=== PATIENT | female | born 1940 | race Asian ===

== ENCOUNTER 2017-07-15 17:05 | Emergency (ER) | payer MEDICARE, OTHER ==
[2017-07-15 17:59] VITALS: TEMP 97.7; BMI 20.2
--- NOTE | 2017-07-15 18:19 | PDOC ---
History of Present Illness <Rosa Chen - Last Filed: 07/15/17 18:19> - General History Source: Patient Exam Limitations: No Limitations - History of Present Illness Initial Comments: 07/15/17 18:43 The patient is a 76 year old female, with significant past medical history of pacemaker (20 years ago), cancer (many years ago), who presents to the emergency room complaining of weakness starting yesterday afternoon. She states that she visited the clinic this morning because her PCP is out of office until tomorrow, and was found to have a blood pressure of 166/90 and was told to come to the emergency room. The patient is a poor historian. Denies changes in vision, dizziness, lightheadedness. Denies fever, chills, nausea, vomiting. Denies abdominal pain. Denies leg swelling, calf pain. Denies chest pain, SOB. Allergies: none reported PCP: Dr. Gillespie <Jenifer Alexander - Last Filed: 07/15/17 18:44> - General Chief Complaint: Weakness Stated Complaint: WEAKNESS Time Seen by Provider: 07/15/17 17:43 Past History - Psycho/Social/Smoking Cessation Hx Anxiety: No Suicidal Ideation: No Smoking History: Never smoked Have you smoked in the past 12 months: No Information on smoking cessation initiated: No Hx Alcohol Use: No Drug/Substance Use Hx: No Substance Use Type: None <Rosa Chen - Last Filed: 07/15/17 18:19> <Jenifer Alexander - Last Filed: 07/15/17 18:44> - Past Medical History Allergies/Adverse Reactions: Allergies Allergy/AdvReac Type Severity Reaction Status Date / Time No Known Allergies Allergy Unverified 07/15/17 17:47 Home Medications: Ambulatory Orders NK [No Known Home Medication] 07/15/17 Review of Systems - Review of Systems Able to Perform ROS?: Yes Comments:: 07/15/17 18:44 GENERAL/CONSTITUTIONAL: +weakness.No fever or chills. HEAD, EYES, EARS, NOSE AND THROAT: No change in vision. No ear pain or discharge. No sore throat. GASTROINTESTINAL: No nausea, vomiting, diarrhea or constipation. GENITOURINARY: No dysuria, frequency, or change in urination. CARDIOVASCULAR: No chest pain or shortness of breath. RESPIRATORY: No cough, wheezing, or hemoptysis. MUSCULOSKELETAL: No joint or muscle swelling or pain. No neck or back pain. SKIN: No rash NEUROLOGIC: No headache, vertigo, loss of consciousness, or change in strength/ sensation. ENDOCRINE: No increased thirst. No abnormal weight change. HEMATOLOGIC/LYMPHATIC: No anemia, easy bleeding, or history of blood clots. ALLERGIC/IMMUNOLOGIC: No hives or skin allergy. <Jenifer Alexander - Last Filed: 07/15/17 18:44> *Physical Exam - Vital Signs Last Vital Signs Temp Pulse Resp BP Pulse Ox 97.7 F 63 18 133/71 98 07/15/17 17:33 07/15/17 17:33 07/15/17 17:33 07/15/17 17:33 07/15/17 17:33 <Rosa Chen - Last Filed: 07/15/17 18:19> - Vital Signs Last Vital Signs Temp Pulse Resp BP Pulse Ox 97.7 F 63 18 133/71 98 07/15/17 17:33 07/15/17 17:33 07/15/17 17:33 07/15/17 17:33 07/15/17 17:33 <Jenifer Alexander - Last Filed: 07/15/17 18:44> ED Treatment Course - LABORATORY CBC & Chemistry Diagram: 07/15/17 18:15 07/15/17 18:15 <Jenifer Alexander - Last Filed: 07/15/17 18:44> *DC/Admit/Observation/Transfer - Attestations Scribe Attestion: 07/15/17 18:44 Documentation prepared by MIL Thompson, acting as medical collector for Rosa Chen MD. <Jenifer Alexander - Last Filed: 07/15/17 18:44>
[2017-07-15 18:41] LABS: BASOPHIL 0.7 % (0-2.0); EOSINOPHIL 1.9 % (0-4.5); MCH 29.1 pg (25.7-33.7); MEAN CELL VOLUME 88.2 fl (80-96); MEAN PLT VOLUME 7.9 fl (7.5-11.1); NEUTROPHILS 61.2 % (42.8-82.8); PLATELET COUNT 229 K/MM3 (134-434); RDW 13.1 % (11.6-15.6); WHITE BLOOD COUNT 3.7 K/mm3 (4.0-10.0)
[2017-07-15 19:09] LABS: ALBUMIN 4.2 g/dl (3.4-5.0); ANION GAP 8 (8-16); BILIRUBIN,TOTAL 0.5 mg/dL (0.2-1.0); CALCIUM 9.5 mg/dL (8.5-10.1); CO2 32 mmol/L (21-32); CREATININE 0.6 mg/dL (0.55-1.02); GLUCOSE,RANDOM 84 mg/dL (74-106); SGPT/ALT 27 U/L (12-78); TOT PROT 7.6 g/dl (6.4-8.2)
[2017-07-15 19:11] LABS: ALK PHOS 79 U/L (45-117); TROPONIN I < 0.02 ng/ml (0.00-0.05)
[2017-07-15 19:17] VITALS: BP 130/78; PULSE 70
[2017-07-15 19:19] LABS: CPK 332 IU/L (26-192); SGOT/AST 44 U/L (15-37)
[2017-07-15 19:28] LABS: URINE APPEARANCE CLEAR; URINE BILIRUBIN NEGATIVE (NEGATIVE); URINE BLOOD NEGATIVE (NEGATIVE); URINE COLOR STRAW; URINE GLUCOSE (UA) NEGATIVE (NEGATIVE); URINE KETONE NEGATIVE (NEGATIVE); URINE LEUK ESTERASE NEGATIVE (NEGATIVE); URINE NITRITE NEGATIVE (NEGATIVE); URINE PROTEIN NEGATIVE (NEGATIVE); URINE UROBILINOGEN NEGATIVE mg/dL (0.2-1.0)
--- NOTE | 2017-07-15 20:25 | PDOC ---
*Physical Exam - Vital Signs Last Vital Signs Temp Pulse Resp BP Pulse Ox 97.7 F 70 16 130/78 99 07/15/17 17:33 07/15/17 19:18 07/15/17 19:17 07/15/17 19:17 07/15/17 19:18 ED Treatment Course - LABORATORY CBC & Chemistry Diagram: 07/15/17 18:15 07/15/17 18:15 - ADDITIONAL ORDERS Additional order review: Laboratory Results 07/15/17 07/15/17 19:11 18:15 Sodium 137 Potassium 4.3 Chloride 97 L Carbon Dioxide 32 Anion Gap 8 BUN 13 Creatinine 0.6 Creat Clearance w eGFR > 60 Random Glucose 84 Calcium 9.5 Total Bilirubin 0.5 AST 44 H ALT 27 Alkaline Phosphatase 79 Creatine Kinase 332 H Creatine Kinase Index 0.9 CK-MB (CK-2) 3.146 Troponin I < 0.02 Total Protein 7.6 Albumin 4.2 Urine Color Straw Urine Appearance Clear Urine pH 8.0 Urine Protein Negative Urine Glucose (UA) Negative Urine Ketones Negative Urine Blood Negative Urine Nitrite Negative Urine Bilirubin Negative Urine Urobilinogen Negative Ur Leukocyte Esterase Negative 07/15/17 18:15 RBC 4.28 MCV 88.2 MCHC 33.0 RDW 13.1 MPV 7.9 Neutrophils % 61.2 Lymphocytes % 26.9 Monocytes % 9.3 Eosinophils % 1.9 Basophils % 0.7 Medical Decision Making - Medical Decision Making 07/15/17 20:24 all studies within normal values. Pt to be discharged. *DC/Admit/Observation/Transfer Diagnosis at time of Disposition: Weakness - Discharge Dispostion Disposition: HOME Condition at time of disposition: Stable Admit: No - Patient Instructions Printed Discharge Instructions: DI for Muscle Weakness
--- NOTE | 2017-07-16 14:57 | EKG ---
Test Reason : Blood Pressure : / mmHG Vent. Rate : 066 BPM Atrial Rate : 066 BPM P-R Int : 156 ms QRS Dur : 080 ms QT Int : 410 ms P-R-T Axes : 015 058 061 degrees QTc Int : 429 ms SINUS RHYTHM WITH PREMATURE ATRIAL COMPLEXES OTHERWISE NORMAL ECG WHEN COMPARED WITH ECG OF 20-MAR-2006 07:24, PREMATURE ATRIAL COMPLEXES ARE NOW PRESENT NONSPECIFIC T WAVE ABNORMALITY NOW EVIDENT IN ANTERIOR LEADS Confirmed by LISSETH GLASS, RENEA ([id number]) on 07/16/2017 2:57:11 PM Referred By: Confirmed By:RENEA MONTANEZ MD
== END 2017-07-15 20:34 | disposition home or self-care (01) ==
LOC: JER 17:05
DX: M62.81 Muscle weakness (generalized) (principal); Z95.0 Presence of cardiac pacemaker; Z85.9 Personal history of malignant neoplasm, unspecified
CPT/HCPCS: 36415; 80053; 81003; 82553; 84484; 85025; 87086; 93005; 93010; 99284-25

== ENCOUNTER 2017-09-25 12:23 | Emergency (ER) | payer MEDICARE, OTHER ==
[2017-09-25 12:36] VITALS: BP 137/67; PULSE 67; TEMP 95.6; BMI 20.2
--- NOTE | 2017-09-25 13:06 | PDOC ---
History of Present Illness - General Chief Complaint: Chest Pain Stated Complaint: LEFT SIDED CHEST PAIN Time Seen by Provider: 09/25/17 12:50 History Source: Patient - History of Present Illness Initial Comments: 09/25/17 13:15 Patient is a 76 y.o. female with a PMH of lymphoma, MDD, and cardiac pacemaker placement who presents today w/neighbor for a concern for chest pain and palpitations. Patient notes the chest pain is L sided parasternal localized to her pacemaker. Pain is relieved by rubbing and exacerbated by exertion. Patient endorses associated shortness of breath upon exertion/relieved by rest and denies any cough, fevers, viral URI symptoms. Of note, patient's sister last week and she notes some exacerbated baseline anxiety/ depression. NKDA Surgical: Pacemaker Placement Social: denies cigarettes, denies alcohol, denies recreational drugs PMD: Dr. Gillespie Past History - Past Medical History Allergies/Adverse Reactions: Allergies Allergy/AdvReac Type Severity Reaction Status Date / Time No Known Allergies Allergy Verified 09/25/17 12:33 Home Medications: Ambulatory Orders Fluoxetine HCl 20 mg PO DAILY 09/25/17 Zinc Sulfate 220 mg PO DAILY 09/25/17 - Suicide/Smoking/Psychosocial Hx Smoking History: Never smoked Have you smoked in the past 12 months: No Hx Alcohol Use: No Drug/Substance Use Hx: No Substance Use Type: None Review of Systems - Review of Systems Constitutional: No: Chills, Fever Respiratory: No: Cough, Shortness of Breath Cardiac (ROS): Yes: Chest Pain (reproducible over L parasteral pacemaker), Palpitations. No: Lightheadedness, Chest Tightness : No: Burning, Dysuria Psychiatric: Yes: Anxiety, Depression All Other Systems: Reviewed and Negative *Physical Exam - Vital Signs Last Vital Signs Temp Pulse Resp BP Pulse Ox 95.6 F L 67 19 137/67 97 09/25/17 12:33 09/25/17 12:33 09/25/17 12:33 09/25/17 12:33 09/25/17 12:33 - Physical Exam General Appearance: Yes: Nourished, Thin HEENT: positive: CYNDEE Respiratory/Chest: positive: Normal Breath Sounds. negative: Accessory Muscle Use, Labored Respiration, Crackles, Rales, Stridor, Wheezing Cardiovascular: positive: S1, S2. negative: Murmur Gastrointestinal/Abdominal: positive: Normal Bowel Sounds, Tender, Soft Extremity: positive: Normal Capillary Refill, Normal Inspection Integumentary: positive: Normal Color, Dry, Warm, Other (L parasternal pacemaker , no appreciable warmth, no erythema, no TTP) Neurologic: positive: automotive refinish technician II-XII NML intact, Fully Oriented, Alert ED Treatment Course - LABORATORY CBC & Chemistry Diagram: 09/25/17 13:20 09/25/17 13:20 Medical Decision Making - Medical Decision Making 09/25/17 19:50 Patient is 76 y.o female who presents with palpations. Initial DDx is for ACS ( less likely) vs. Pacemaker dysfunction. EKG shows NSR @ HR 65 with no deviations, normal intervals and no T wave changes and good R wave progression. Troponin (-) x2. CBC shows no anemia. Dr. Guerrier (cardiology) evaluated patient @ bedside, determined patient could be f/u as outpatient for pacemaker interrogation. Patient discharged home with return precautions and instruction to f/u with cardiology in the next 3-5 days. *DC/Admit/Observation/Transfer Diagnosis at time of Disposition: Chest pain, atypical - Discharge Dispostion Disposition: HOME Condition at time of disposition: Good Admit: No - Referrals Referrals: Philippe Guerrier MD [Staff Physician] - - Patient Instructions Printed Discharge Instructions: DI for Atypical Chest Pain Additional Instructions: Please return to the Emergency Department for any worsening or concerning symptoms. Please make an appointment to see Dr. Guerrier for evaluation of your pacemaker within the next 3-5 days. - Post Discharge Activity
[2017-09-25 13:25] LABS: BASOPHIL 1.3 % (0-2.0); EOSINOPHIL 2.9 % (0-4.5); MCH 28.5 pg (25.7-33.7); MCHC 32.6 g/dl (32.0-36.0); MEAN CELL VOLUME 87.5 fl (80-96); MEAN PLT VOLUME 7.2 fl (7.5-11.1); NEUTROPHILS 68.1 % (42.8-82.8); PLATELET COUNT 251 K/MM3 (134-434); RDW 13.1 % (11.6-15.6); WHITE BLOOD COUNT 2.8 K/mm3 (4.0-10.0)
[2017-09-25 13:58] LABS: ALBUMIN 4.1 g/dl (3.4-5.0); ALK PHOS 52 U/L (45-117); ANION GAP 11 (8-16); BILIRUBIN,TOTAL 0.6 mg/dL (0.2-1.0); CALCIUM 9.1 mg/dL (8.5-10.1); CO2 28 mmol/L (21-32); CREATININE 0.9 mg/dL (0.55-1.02); GLUCOSE,RANDOM 132 mg/dL (74-106); SGOT/AST 26 U/L (15-37); SGPT/ALT 22 U/L (12-78); TOT PROT 7.4 g/dl (6.4-8.2)
[2017-09-25 14:00] LABS: CPK 204 IU/L (26-192); TROPONIN I < 0.02 ng/ml (0.00-0.05)
--- NOTE | 2017-09-25 14:07 | PDOC ---
Attending Attestation - Resident Resident Name: Morenita Galindo - ED Attending Attestation I have performed the following: I have examined & evaluated the patient, The case was reviewed & discussed with the resident, I agree w/resident's findings & plan, Exceptions are as noted - HPI HPI: 09/25/17 13:44 76 year old F c/ hx pacemaker, lymphoma (in remission) p/w chest pain since yesterday. The patient started to notice yesterday. Reports chest discomfort over the pacemaker site improved with rubbing on the site. Denies midsternal chest pain or exertional component. Denies SOB at rest. States that this make her feel occasional SOB. Denies recent illnesses, fevers, chills. Dr. Guerrier is her meters superintendent. - Physicial Exam PE: 09/25/17 17:09 GENERAL: NAD, AAOx3, comfortable appearing CV: RRR, +s1, s2. Left pacemaker clean, dry intact, and with no erythema or drainage. R sided port. No erythema, drainage. PULM: CTA b/l ABD: soft, nd, nt - Medical Decision Making 09/25/17 17:11 Vital Signs Temp Pulse Resp BP Pulse Ox 95.6 F L 67 19 137/67 97 09/25/17 12:33 09/25/17 13:39 09/25/17 13:39 09/25/17 13:39 09/25/17 13:39 The chest pain is atypical for ACS. However, with cardiac disease, we need at the very minimum two troponins. We had spoken with Dr. Guerrier (her meters superintendent) who came and saw and evaluated the patient. Agrees with plan for two troponins, and if workup negative, the patient can follow up in his office on an urgent basis. Heart Score/ECG Review - History History: Slightly suspicious - Electrocardiogram EKG: Non specific repolarization disturbance - Age Age: >/= 65 - Risk Factors Risk Factors Heart Score: Yes Hx Hypertension Based on the list above the patient has:: 1-2 risk factors - Troponin Troponin: </= normal limit - Score Heart Score - Total: 4 #1 ECG reviewed & interpreted by me at: 12:30 09/25/17 17:11 NSR 65, no std/tawanna, normal axis, normal intervals, LVH, QTC 424 msec
--- NOTE | 2017-09-25 21:00 | PDOC ---
*Physical Exam - Vital Signs Last Vital Signs Temp Pulse Resp BP Pulse Ox 95.6 F L 67 19 137/67 97 09/25/17 12:33 09/25/17 13:39 09/25/17 13:39 09/25/17 13:39 09/25/17 13:39 - Physical Exam Comments: 09/25/17 20:57 gen: aaox3, nad, heart: +s1s2 reg, ttp over L pacer site Lungs: cta b/l abd: soft, nt/nd +bs Ext: no c/c/e ED Treatment Course - LABORATORY CBC & Chemistry Diagram: 09/25/17 13:20 09/25/17 13:20 - ADDITIONAL ORDERS Additional order review: Laboratory Results 09/25/17 09/25/17 19:10 13:20 Sodium 136 Potassium 3.5 Chloride 97 L Carbon Dioxide 28 Anion Gap 11 BUN 11 Creatinine 0.9 D Creat Clearance w eGFR > 60 Random Glucose 132 H D Calcium 9.1 Total Bilirubin 0.6 AST 26 D ALT 22 Alkaline Phosphatase 52 D Creatine Kinase 204 H Creatine Kinase Index 0.8 CK-MB (CK-2) 1.712 Troponin I 0.02 < 0.02 Total Protein 7.4 Albumin 4.1 09/25/17 13:20 RBC 4.72 MCV 87.5 MCHC 32.6 RDW 13.1 MPV 7.2 L Neutrophils % 68.1 Lymphocytes % 16.8 D Monocytes % 10.9 H Eosinophils % 2.9 Basophils % 1.3 Medical Decision Making - Medical Decision Making 09/25/17 20:58 76yo female signed out pending repeat trop will follow up with Dr. Guerrier as outpt repeat trop negative. no cp at this time unless pacer is palpated discussed labs and plan with the patient and her family will have pacer interogated as oupt stable for d/c to home *DC/Admit/Observation/Transfer Diagnosis at time of Disposition: Chest pain, atypical - Discharge Dispostion Disposition: HOME Condition at time of disposition: Good - Referrals Referrals: Philippe Guerrier MD [Staff Physician] - - Patient Instructions Printed Discharge Instructions: DI for Atypical Chest Pain Additional Instructions: Please return to the Emergency Department for any worsening or concerning symptoms. Please make an appointment to see Dr. Guerrier for evaluation of your pacemaker within the next 3-5 days. - Post Discharge Activity
--- NOTE | 2017-09-26 10:06 | EKG ---
Test Reason : Blood Pressure : / mmHG Vent. Rate : 065 BPM Atrial Rate : 065 BPM P-R Int : 166 ms QRS Dur : 080 ms QT Int : 408 ms P-R-T Axes : 071 066 069 degrees QTc Int : 424 ms NORMAL SINUS RHYTHM VOLTAGE CRITERIA FOR LEFT VENTRICULAR HYPERTROPHY ABNORMAL ECG WHEN COMPARED WITH ECG OF 15-JUL-2017 18:39, PREMATURE ATRIAL COMPLEXES ARE NO LONGER PRESENT Confirmed by MAGAN MARTINES MD ([id number]) on 09/26/2017 10:06:06 AM Referred By: Confirmed By:MAGAN MARTINES MD
== END 2017-09-25 21:30 | disposition home or self-care (01) ==
LOC: JER 12:23
DX: R07.89 Other chest pain (principal); Z95.0 Presence of cardiac pacemaker
CPT/HCPCS: 36415; 71020-TC; 80053; 82550; 82553; 84484; 85025; 93005; 93010; 99283-25

== ENCOUNTER 2021-12-30 22:40 | Inpatient (IN) | payer OTHER ==
[2021-12-30] MEDS ORDERED: PANTOPRAZOLE SODIUM 40 MG VIAL IVPUSH ONE (22:58)
[2021-12-30] MEDS ORDERED: ONDANSETRON 4 MG/2 ML VIAL IVPUSH ONE (23:07)
[2021-12-30] MEDS ORDERED: PANTOPRAZOLE SODIUM 40 MG VIAL ONE (23:22)
[2021-12-30] MEDS ORDERED: PANTOPRAZOLE SODIUM 40 MG/100 ML BAG IVPB ONE (23:22)
[2021-12-30] MEDS ORDERED: ONDANSETRON 4 MG/2 ML VIAL ONE (23:22)
[2021-12-30 23:23] LABS: BASO % 0.1 % (0-2.0); HEMATOCRIT 23.7 % (32.4-45.2); HEMOGLOBIN 7.6 GM/dL (10.7-15.3); LYMPH % 0.8 % (8-40); MCH 28.4 pg (25.7-33.7); MEAN CELL VOLUME 88.8 fl (80-96); MEAN PLT VOLUME 6.8 fl (7.5-11.1); MONO % 3.4 % (3.8-10.2); NEUT % 95.7 % (42.8-82.8); PLATELET COUNT 512 10^3/uL (134-434); RBC 2.67 M/mm3 (3.60-5.2); RDW 18.7 % (11.6-15.6); WHITE BLOOD COUNT 10.7 K/mm3 (4.0-10.0)
[2021-12-30 23:32] LABS: INR 1.15 (0.83-1.09); PROTHROMBIN TIME (PATIENT) 13.3 SEC (9.7-13.0)
[2021-12-30 23:34] LABS: ACTIVATED PTT 23.4 SECONDS (25.2-36.5)
[2021-12-30] MEDS ORDERED: SODIUM CHLORIDE 0.9% 500 ML INFUS.BAG IV ONE (23:37)
[2021-12-30 23:45] LABS: ANISOCYTOSIS 0; HELMET CELLS 0; HOWELL-JOLLY BODIES 0; MACROCYTOSIS 0; OVALOCYTE 0; ROULEAU 0; SICKELED CELLS 0; TARGET CELLS 0; TEAR DROP CELLS 0; TOXIC GRANULATION 0
[2021-12-30 23:47] LABS: ALBUMIN 2.9 g/dl (3.4-5.0); BLOOD UREA NITROGEN 99.2 mg/dL (7-18)
[2021-12-30 23:50] LABS: CREATININE 2.7 mg/dL (0.55-1.3)
[2021-12-31 00:01] LABS: LACTIC ACID 3.1 mmol/L (0.4-2.0)
[2021-12-31] MEDS ORDERED: ACETAMINOPHEN 1000 MG/100 ML BAG IVPB ONE (00:16)
[2021-12-31] MEDS ORDERED: ACETAMINOPHEN INJECTION 100 ML IVPB ONE (00:41)
[2021-12-31 01:25] LABS: VENOUS BASE EXCESS -12.6 mmol/L (-2-2); VENOUS O2 SATURATION 70.6 % (70-80); VENOUS PCO2 27.4 mmHg (38-52); VENOUS PH 7.287 (7.310-7.410)
[2021-12-31] MEDS ORDERED: SODIUM CHLORIDE 1,000 ML IV STA (01:47)
[2021-12-31] MEDS ORDERED: ONDANSETRON 4 MG/2 ML VIAL IVPUSH PRN (02:03)
[2021-12-31] MEDS ORDERED: PANTOPRAZOLE SODIUM 80 MG in SODIUM CHLORIDE 100 ML IVPB SCH (02:15)
[2021-12-31 02:24] LABS: EPI CELLS 7 /uL (0-25.1); HYALINE CASTS 7 /uL (0-3.1); URINE APPEARANCE CLEAR; URINE BACTERIA 3 /uL (0-1359); URINE BILIRUBIN NEGATIVE (NEGATIVE); URINE COLOR YELLOW; URINE GLUCOSE (UA) NEGATIVE (NEGATIVE); URINE KETONE 2+ (NEGATIVE); URINE LEUK ESTERASE NEGATIVE (NEGATIVE); URINE NITRITE NEGATIVE (NEGATIVE); URINE PROTEIN 1+ (NEGATIVE); URINE UROBILINOGEN 0.2 mg/dL (0.2-1.0); URINE WBC 5 /uL (0-25.8)
[2021-12-31] MEDS: PANTOPRAZOLE SODIUM 160 MG in SODIUM CHLORIDE 290 ML IVPB SCH ×2 (02:34→21:44)
[2021-12-31] MEDS ORDERED: SODIUM CHLORIDE 0.45% 1,000 ML IV SCH (03:00)
[2021-12-31 07:46] LABS: HEMATOCRIT 29.4 % (32.4-45.2); MCH 29.9 pg (25.7-33.7); PLATELET COUNT 337 10^3/uL (134-434); RBC 3.34 M/mm3 (3.60-5.2); RDW 16.4 % (11.6-15.6); WHITE BLOOD COUNT 9.3 K/mm3 (4.0-10.0)
[2021-12-31 08:02] LABS: CHLORIDE 116 mmol/L (98-107); SODIUM 151 mmol/L (136-145)
[2021-12-31 08:05] LABS: CALCIUM 7.8 mg/dL (8.5-10.1)
[2021-12-31 08:06] LABS: ALBUMIN 2.8 g/dl (3.4-5.0); ANION GAP 18 MMOL/L (8-16); BLOOD UREA NITROGEN 92.8 mg/dL (7-18); CO2 17 mmol/L (21-32); GLUCOSE,RANDOM 101 mg/dL (74-106); MAGNESIUM 2.7 mg/dL (1.8-2.4)
[2021-12-31 08:09] LABS: CREATININE 2.4 mg/dL (0.55-1.3); PHOSPHOROUS 3.8 mg/dL (2.5-4.9); SGOT/AST 264 U/L (15-37); SGPT/ALT 57 U/L (13-61)
[2021-12-31 08:11] LABS: BILIRUBIN,TOTAL 1.5 mg/dL (0.2-1); TOT PROT 5.9 g/dl (6.4-8.2)
[2021-12-31 08:12] LABS: ALK PHOS 73 U/L (45-117)
[2021-12-31 08:40] LABS: URINE RBC 38 /uL (0-23.9)
[2021-12-31 08:52] LABS: ANISOCYTOSIS 0; HELMET CELLS 0; HOWELL-JOLLY BODIES 0; MACROCYTOSIS 0; OVALOCYTE 0; ROULEAU 0; SICKELED CELLS 0; TARGET CELLS 0; TEAR DROP CELLS 0; TOXIC GRANULATION 0
[2021-12-31] MEDS: MUPIROCIN 2% TOPICAL OINTMENT FOR DECOLONIZATION NS SCH ×2 (10:00→21:42)
[2021-12-31] MEDS ORDERED: PNEUMOC 13-VAL CONJ-DIP CRM/PF 0.5 ML DISP.SYRIN IM ONE (13:59)
[2021-12-31] MEDS: DEXTROSE 5%-0.45% SALINE 1,000 ML IV SCH (18:39)
[2021-12-31 21:23] LABS: BASO % 0.1 % (0-2.0); HEMATOCRIT 29.3 % (32.4-45.2); HEMOGLOBIN 9.9 GM/dL (10.7-15.3); LYMPH % 1.1 % (8-40); MCH 29.6 pg (25.7-33.7); MCHC 33.6 g/dl (32.0-36.0); MEAN CELL VOLUME 88.1 fl (80-96); MEAN PLT VOLUME 7.1 fl (7.5-11.1); MONO % 4.3 % (3.8-10.2); NEUT % 94.5 % (42.8-82.8); PLATELET COUNT 270 10^3/uL (134-434); RBC 3.33 M/mm3 (3.60-5.2); RDW 16.3 % (11.6-15.6)
[2021-12-31] MEDS ORDERED: ACETAMINOPHEN 1000 MG/100 ML BAG IVPB PRN ×2 (21:25→22:18)
[2021-12-31] MEDS ORDERED: METOPROLOL TARTRATE 5 MG/5 ML VIAL IVPUSH PRN (21:36)
[2021-12-31] MEDS: CHLORHEXIDINE GLUCONATE 4% CLEANSER FOR DECOLONIZATION TP SCH (21:42)
[2021-12-31 21:49] LABS: ANISOCYTOSIS 2+; MACROCYTOSIS 0
[2021-12-31 23:41] LABS: N-TERMINAL BNP 3088.2 pg/ml (5-450)
[2022-01-01 07:48] LABS: ALBUMIN 2.6 g/dl (3.4-5.0); BLOOD UREA NITROGEN 81.4 mg/dL (7-18); CALCIUM 7.7 mg/dL (8.5-10.1); MAGNESIUM 2.7 mg/dL (1.8-2.4)
[2022-01-01 07:51] LABS: CREATININE 2.3 mg/dL (0.55-1.3); PHOSPHOROUS 2.6 mg/dL (2.5-4.9)
[2022-01-01 07:52] LABS: BILIRUBIN,TOTAL 0.8 mg/dL (0.2-1)
[2022-01-01 07:53] LABS: TOT PROT 5.7 g/dl (6.4-8.2)
[2022-01-01] MEDS ORDERED: SODIUM CHLORIDE 0.9% 500 ML INFUS.BAG IV ONE ×2 (10:03→14:30)
[2022-01-01] MEDS ORDERED: SODIUM CHLORIDE 0.45% 1,000 ML IV SCH (10:15)
[2022-01-01] MEDS: MUPIROCIN 2% TOPICAL OINTMENT FOR DECOLONIZATION NS SCH ×2 (10:15→21:40)
[2022-01-01] MEDS ORDERED: SODIUM CHLORIDE 0.45% 500 ML IV SCH (10:15)
[2022-01-01 15:31] VITALS: BMI 15.6
[2022-01-01 16:17] LABS: BASO % 0.1 % (0-2.0); HEMATOCRIT 23.4 % (32.4-45.2); HEMOGLOBIN 7.8 GM/dL (10.7-15.3); MCH 29.4 pg (25.7-33.7); MCHC 33.5 g/dl (32.0-36.0); MEAN CELL VOLUME 87.8 fl (80-96); MEAN PLT VOLUME 7.1 fl (7.5-11.1); MONO % 4.3 % (3.8-10.2); NEUT % 94.6 % (42.8-82.8); PLATELET COUNT 214 10^3/uL (134-434); RBC 2.67 M/mm3 (3.60-5.2); WHITE BLOOD COUNT 10.5 K/mm3 (4.0-10.0)
[2022-01-01 16:53] LABS: ANISOCYTOSIS 0; HELMET CELLS 0; HOWELL-JOLLY BODIES 0; MACROCYTOSIS 0; OVALOCYTE 0; ROULEAU 0; SICKELED CELLS 0; TARGET CELLS 0; TEAR DROP CELLS 0; TOXIC GRANULATION 0
[2022-01-01] MEDS: DEXTROSE 5%-0.45% SALINE 1,000 ML IV SCH (17:58)
[2022-01-01] MEDS ORDERED: POTASSIUM CHLORIDE 10 MEQ in DEXTROSE 5%-WATER - 1,000 ML IV SCH (18:15)
[2022-01-01] MEDS ORDERED: DEXTROSE 5%-WATER - 1,000 ML with POTASSIUM CHLORIDE 10 MEQ IV SCH (18:15)
[2022-01-01] MEDS: PANTOPRAZOLE SODIUM 160 MG in SODIUM CHLORIDE 290 ML IVPB SCH (19:46)
[2022-01-01] MEDS: CHLORHEXIDINE GLUCONATE 4% CLEANSER FOR DECOLONIZATION TP SCH (21:39)
[2022-01-02 07:07] LABS: HEMATOCRIT 24.4 % (32.4-45.2); MCHC 32.6 g/dl (32.0-36.0); MEAN CELL VOLUME 88.9 fl (80-96); MEAN PLT VOLUME 7.7 fl (7.5-11.1); PLATELET COUNT 228 10^3/uL (134-434); RBC 2.75 M/mm3 (3.60-5.2); RDW 17.3 % (11.6-15.6); WHITE BLOOD COUNT 14.5 K/mm3 (4.0-10.0)
[2022-01-02 07:18] LABS: ALBUMIN 2.5 g/dl (3.4-5.0); CALCIUM 7.1 mg/dL (8.5-10.1)
[2022-01-02 07:19] LABS: BLOOD UREA NITROGEN 70.1 mg/dL (7-18); MAGNESIUM 2.4 mg/dL (1.8-2.4)
[2022-01-02 07:21] LABS: CREATININE 2.4 mg/dL (0.55-1.3)
[2022-01-02 07:23] LABS: BILIRUBIN,TOTAL 0.9 mg/dL (0.2-1)
[2022-01-02 07:24] LABS: TOT PROT 5.5 g/dl (6.4-8.2)
[2022-01-02 09:21] LABS: ANISOCYTOSIS 0; MACROCYTOSIS 0
[2022-01-02] MEDS ORDERED: POTASSIUM CHLORIDE 10 MEQ in DEXTROSE 5%-WATER - 1,000 ML IV SCH (09:24)
[2022-01-02] MEDS: MUPIROCIN 2% TOPICAL OINTMENT FOR DECOLONIZATION NS SCH ×2 (12:18→22:13)
[2022-01-02 15:25] LABS: HEMATOCRIT 23.4 % (32.4-45.2); HEMOGLOBIN 7.6 GM/dL (10.7-15.3); MCH 28.9 pg (25.7-33.7); MCHC 32.3 g/dl (32.0-36.0); MEAN CELL VOLUME 89.3 fl (80-96); MEAN PLT VOLUME 7.6 fl (7.5-11.1); PLATELET COUNT 233 10^3/uL (134-434); RBC 2.62 M/mm3 (3.60-5.2)
[2022-01-02 16:30] LABS: ANISOCYTOSIS 1+; MACROCYTOSIS 0; TARGET CELLS 1+
[2022-01-02] MEDS ORDERED: ACETAMINOPHEN 1000 MG/100 ML BAG IVPB PRN (19:29)
[2022-01-02] MEDS ORDERED: METOPROLOL TARTRATE 5 MG/5 ML VIAL IVPUSH PRN (19:29)
[2022-01-02] MEDS ORDERED: ONDANSETRON 4 MG/2 ML VIAL IVPUSH PRN (19:29)
[2022-01-02] MEDS: CHLORHEXIDINE GLUCONATE 4% CLEANSER FOR DECOLONIZATION TP SCH (22:13)
[2022-01-03 06:57] LABS: HEMATOCRIT 24.1 % (32.4-45.2); HEMOGLOBIN 7.8 GM/dL (10.7-15.3); MCH 29.3 pg (25.7-33.7); MCHC 32.3 g/dl (32.0-36.0); MEAN CELL VOLUME 90.7 fl (80-96); MEAN PLT VOLUME 8.2 fl (7.5-11.1); PLATELET COUNT 275 10^3/uL (134-434); RBC 2.66 M/mm3 (3.60-5.2); RDW 17.6 % (11.6-15.6); WHITE BLOOD COUNT 14.4 K/mm3 (4.0-10.0)
[2022-01-03 07:10] LABS: CHLORIDE 113 mmol/L (98-107); SODIUM 142 mmol/L (136-145)
[2022-01-03 07:23] LABS: ALBUMIN 2.4 g/dl (3.4-5.0); ANION GAP 6 MMOL/L (8-16); BLOOD UREA NITROGEN 69.5 mg/dL (7-18); CO2 23 mmol/L (21-32); GLUCOSE,RANDOM 167 mg/dL (74-106); MAGNESIUM 2.6 mg/dL (1.8-2.4)
[2022-01-03 07:25] LABS: SGPT/ALT 67 U/L (13-61)
[2022-01-03 07:26] LABS: CREATININE 2.7 mg/dL (0.55-1.3); PHOSPHOROUS 2.1 mg/dL (2.5-4.9); SGOT/AST 442 U/L (15-37)
[2022-01-03 07:27] LABS: TOT PROT 5.6 g/dl (6.4-8.2)
[2022-01-03 07:28] LABS: ALK PHOS 85 U/L (45-117)
[2022-01-03 07:34] LABS: CALCIUM 6.6 mg/dL (8.5-10.1)
[2022-01-03] MEDS ORDERED: CALCIUM GLUCONATE IN NACL 1 GM/50 ML BAG IVPB ONE (08:35)
[2022-01-03 10:57] LABS: HEMATOCRIT 24.3 % (32.4-45.2); HEMOGLOBIN 7.9 GM/dL (10.7-15.3); MCH 30.2 pg (25.7-33.7); MCHC 32.6 g/dl (32.0-36.0); MEAN CELL VOLUME 92.7 fl (80-96); MEAN PLT VOLUME 7.8 fl (7.5-11.1); PLATELET COUNT 263 10^3/uL (134-434); RBC 2.62 M/mm3 (3.60-5.2); RDW 18.1 % (11.6-15.6); WHITE BLOOD COUNT 10.9 K/mm3 (4.0-10.0)
[2022-01-03] MEDS: MUPIROCIN 2% TOPICAL OINTMENT FOR DECOLONIZATION NS SCH ×2 (11:16→22:23)
[2022-01-03] MEDS: POTASSIUM CHLORIDE 10 MEQ in DEXTROSE 5%-WATER - 1,000 ML IV SCH (11:17)
[2022-01-03 12:03] LABS: ANISOCYTOSIS 1+; MACROCYTOSIS 0
[2022-01-03 13:02] LABS: ANISOCYTOSIS 1+; MACROCYTOSIS 1+; OVALOCYTE 1+
[2022-01-03] MEDS ORDERED: CALCIUM GLUCONATE 10% - 1,000 MG/10 ML VIAL IVPB ONE (14:16)
[2022-01-03] MEDS ORDERED: HYDROmorphone HCl 2 MG/ML VIAL IVPUSH PRN (14:25)
[2022-01-03] MEDS: PANTOPRAZOLE SODIUM 160 MG in SODIUM CHLORIDE 290 ML IVPB SCH (14:30)
[2022-01-03] MEDS: AMINO ACIDS 4.25%/D5W 1,000 ML IV SCH (15:55)
[2022-01-03] MEDS: THIAMINE HCL 200 MG/2 ML VIAL IVPB SCH (15:55)
[2022-01-03] MEDS: CHLORHEXIDINE GLUCONATE 4% CLEANSER FOR DECOLONIZATION TP SCH (22:24)
[2022-01-04] MEDS: PANTOPRAZOLE SODIUM 160 MG in SODIUM CHLORIDE 290 ML IVPB SCH (07:07)
[2022-01-04 07:55] LABS: HEMATOCRIT 24.6 % (32.4-45.2); HEMOGLOBIN 7.8 GM/dL (10.7-15.3); MCH 30.2 pg (25.7-33.7); MCHC 31.9 g/dl (32.0-36.0); MEAN CELL VOLUME 94.7 fl (80-96); MEAN PLT VOLUME 8.2 fl (7.5-11.1); PLATELET COUNT 275 10^3/uL (134-434); RDW 19.1 % (11.6-15.6); WHITE BLOOD COUNT 10.7 K/mm3 (4.0-10.0)
[2022-01-04 08:14] LABS: CALCIUM 7.3 mg/dL (8.5-10.1)
[2022-01-04 08:16] LABS: ALBUMIN 2.3 g/dl (3.4-5.0); BLOOD UREA NITROGEN 83.8 mg/dL (7-18); MAGNESIUM 2.4 mg/dL (1.8-2.4)
[2022-01-04] MEDS ORDERED: SODIUM CHLORIDE 500 ML IV STA (08:17)
[2022-01-04 08:18] LABS: CREATININE 3.3 mg/dL (0.55-1.3); PHOSPHOROUS 4.1 mg/dL (2.5-4.9)
[2022-01-04 08:20] LABS: BILIRUBIN,TOTAL 0.9 mg/dL (0.2-1); TOT PROT 5.6 g/dl (6.4-8.2)
[2022-01-04] MEDS ORDERED: PANTOPRAZOLE SODIUM 40 MG VIAL IVPUSH SCH (10:00)
[2022-01-04] MEDS ORDERED: MORPHINE SULFATE/0.9% NACL/PF 100 MG/100 ML BAG IVPB SCH (10:15)
[2022-01-04 10:28] LABS: ANISOCYTOSIS 2+; MACROCYTOSIS 1+; OVALOCYTE 1+; PLATELET ESTIMATE NORMAL; TEAR DROP CELLS 1+
[2022-01-04] MEDS: POTASSIUM CHLORIDE 10 MEQ in DEXTROSE 5%-WATER - 1,000 ML IV SCH (10:40)
[2022-01-04] MEDS: THIAMINE HCL 200 MG/2 ML VIAL IVPB SCH (10:40)
[2022-01-04] MEDS: MUPIROCIN 2% TOPICAL OINTMENT FOR DECOLONIZATION NS SCH ×2 (11:32→21:02)
[2022-01-04] MEDS: AMINO ACIDS 4.25%/D5W 1,000 ML IV SCH (14:35)
[2022-01-04 16:45] VITALS: BP 61/32
[2022-01-04 17:13] VITALS: TEMP 98.1
[2022-01-04] MEDS: CHLORHEXIDINE GLUCONATE 4% CLEANSER FOR DECOLONIZATION TP SCH (21:02)
[2022-01-05 00:27] VITALS: PULSE 73
== END 2022-01-05 05:01 | disposition expired | DRG 435 ==
LOC: JER 22:40 → JERBED 12-31 01:58 → JICU 12-31 03:06 → J2W 01-01 23:59
PROVIDERS: ADMIT Internal Medicine Pulmonary Disease; ATTEND Internal Medicine
PROC: 30233N1 Transfusion of Nonautologous Red Blood Cells into Peripheral Vein, Percutaneous Approach (ICD-10-PCS; principal; 2021-12-31)
DX: C78.7 Secondary malignant neoplasm of liver and intrahepatic bile duct (principal); K85.90 Acute pancreatitis without necrosis or infection, unspecified; E43 Unspecified severe protein-calorie malnutrition; K92.2 Gastrointestinal hemorrhage, unspecified; N17.9 Acute kidney failure, unspecified; C85.90 Non-Hodgkin lymphoma, unspecified, unspecified site; I24.8 Other forms of acute ischemic heart disease; R64 Cachexia; E87.2 Acidosis; Z68.1 Body mass index [BMI] 19.9 or less, adult; E87.0 Hyperosmolality and hypernatremia; R18.8 Other ascites; D72.829 Elevated white blood cell count, unspecified; I48.0 Paroxysmal atrial fibrillation; I25.10 Atherosclerotic heart disease of native coronary artery without angina pectoris; D64.9 Anemia, unspecified; E87.5 Hyperkalemia; R57.1 Hypovolemic shock; I46.9 Cardiac arrest, cause unspecified; R11.2 Nausea with vomiting, unspecified; R94.5 Abnormal results of liver function studies; E78.00 Pure hypercholesterolemia, unspecified; F03.90 Unspecified dementia, unspecified severity, without behavioral disturbance, psychotic disturbance, mood disturbance, and anxiety; N18.9 Chronic kidney disease, unspecified; Z95.0 Presence of cardiac pacemaker; Z66 Do not resuscitate
CPT/HCPCS: 36415; 36430; 70450-TC; 71045-TC-FY; 72125-TC; 74176-TC; 76775-TC; 80053; 80061; 81003; 82105; 82272; 82550; 82553; 82803; 83036; 83605; 83690; 83735; 83880; 84100; 84443; 84484; 85025; 85610; 85730; 86301; 86707; 86850; 86900; 86901; 86922; 87040; 87086; 87340; 87350; 87804; 90670; 93005; 93010; 93306-TC; 99285-25; C9803; P9058; U0003; U0005